=== PATIENT | female | born 1970 | race Caucasian/White ===

== ENCOUNTER → 2017-08-19 | Outpatient (CLI) | payer BC ==
--- NOTE | 2017-08-19 11:37 | MM ---
Reason for exam: clinical finding. Last mammogram was performed 2 years and 8 months ago. History: Benign US biopsy breast VAD LT of the left breast, January 03, 2014. U/S LT Cancelled Aspiration of both breasts, June 05, 2013. Retro-pectoral silicone gel implants in both breasts, 2010. Physical Findings: Nurse Summary: 0.5cm nodule in the right breast at 10 o'clock and a 0.5cm nodule in the left breast at 2 o'clock (nurse dw). MG Diag Mamm Implants TIGRE w CAD Bilateral CC and MLO view(s) were taken. Prior study comparison: December 24, 2014, bilateral MG diag mamm implants TIGRE w CAD. January 03, 2014, left breast MG diagnostic mammo LT wo CAD. The breast tissue is extremely dense which could obscure a lesion on mammography. Previous mammotome biopsy in the left breast. Subpectoral implants bilaterally. These results were verbally communicated with the patient and result sheet given to the patient on 08/19/17. ASSESSMENT: Incomplete: need additional imaging evaluation, BI-RAD 0 RECOMMENDATION: Ultrasound of both breasts. (palpables)
--- NOTE | 2017-08-19 11:41 | USB ---
Reason for exam: clinical finding. History: Benign US biopsy breast VAD LT of the left breast, January 03, 2014. U/S LT Cancelled Aspiration of both breasts, June 05, 2013. Retro-pectoral silicone gel implants in both breasts, 2010. US Breast BILAT Right breast ultrasound includes all four quadrants, the retroareolar region and axilla. Finding demonstrates a 1.2 x 0.4 x 0.6cm oval, mixed lesion at 10 o'clock questionable tissue or lobule and a 0.4 x 0.5cm oval, cystic lesion at 8 o'clock. Left breast ultrasound includes all four quadrants, the retroareolar region and axilla. Finding demonstrates a 0.7 x 0.3 x 0.6cm oval, cystic, hypoechoic lesion at 12 o'clock, a 0.5 x 0.6 x 0.4cm oval, irregular lesion at 12 o'clock was biopsied 01/03/14 and stable, a 0.7 x 0.3 x 0.6cm oval, cystic lesion at 1 o'clock BB and a 1.1 x 0.6 x 1.2cm oval, cystic cluster at 2 o'clock. Dense tissue noted at axilla BB. These results were verbally communicated with the patient and result sheet given to the patient on 08/19/17. ASSESSMENT: Probably benign, BI-RAD 3 RECOMMENDATION: Ultrasound of the right breast in 6 months.
== END ==
LOC: RADMAMWWP 07:25
PROVIDERS: ATTEND Family Medicine
DX: N60.12 Diffuse cystic mastopathy of left breast (principal); N63.32 Unspecified lump in axillary tail of the left breast
CPT/HCPCS: 77066

== ENCOUNTER → 2020-12-12 | Outpatient (CLI) | payer BC ==
--- NOTE | 2020-12-12 11:45 | MM ---
Reason for exam: clinical finding. Last mammogram was performed 3 years and 4 months ago. History: Benign US biopsy breast VAD LT of the left breast, January 03, 2014. U/S LT Cancelled Aspiration of both breasts, June 05, 2013. Retro-pectoral silicone gel implants in both breasts, 2010. Indicated problem(s): lump or thickening in the left breast. Physical Findings: Nurse Summary: 1cm nodule in the left breast at 2 o'clock (nurse anyn). MG Diag Mamm Implants TIGRE w CAD Bilateral CC, MLO, and ID view(s) were taken. XCCL view(s) were taken of the left breast. Prior study comparison: August 19, 2017, bilateral MG diag mamm implants TIGRE w CAD. December 24, 2014, bilateral MG diag mamm implants TIGRE w CAD. The breast tissue is extremely dense which could obscure a lesion on mammography. Previous mammotome biopsy in the left breast There is chronic nodularity in the left breast. Bilateral subpectoral implants redemonstrated. These results were verbally communicated with the patient and result sheet given to the patient on 12/12/20. ASSESSMENT: Incomplete: need additional imaging evaluation, BI-RAD 0 RECOMMENDATION: Ultrasound of both breasts. (palpables)
--- NOTE | 2020-12-12 11:49 | USB ---
Reason for exam: additional evaluation requested from abnormal screening. History: Benign US biopsy breast VAD LT of the left breast, January 03, 2014. U/S LT Cancelled Aspiration of both breasts, June 05, 2013. Retro-pectoral silicone gel implants in both breasts, 2010. US Breast BILAT Right complete breast ultrasound includes all four quadrants, the retroareolar region and axilla. Finding demonstrates a 11 x 4 x 6mm oval, avascular, hypoechoic lesion at 10 o'clock, stable from 2018, suspect debris filled cyst. Left complete breast ultrasound includes all four quadrants, the retroareolar region and axilla. Finding demonstrates a 5 x 3 x 8mm oval, cystic, mixed , stable lesion too small to characterize at 12 o'clock, a 10 x 4 x 8mm oval, lobular, cystic lesion at 2 o'clock, simple cyst and a 15 x 6 x 12mm oval, cystic lesion at 2 o'clock BB, simple cyst. These results were verbally communicated with the patient and result sheet given to the patient on 12/12/20. ASSESSMENT: Benign, BI-RAD 2 RECOMMENDATION: Follow-up diagnostic mammogram of both breasts in 1 year. Manage patient on a clinical basis.
== END | disposition home or self-care (01) ==
LOC: RADMAMWWP 09:00
PROVIDERS: ATTEND Family Medicine
DX: R92.2 Inconclusive mammogram (principal); N64.89 Other specified disorders of breast; N60.02 Solitary cyst of left breast
CPT/HCPCS: 77066

== ENCOUNTER → 2020-12-22 | Outpatient (CLI) | payer BC ==
--- NOTE | 2020-12-22 21:43 | ECHOF ---
Referral Reason:I34.0 Nonrheumatic mitral (valve) insufficiency MEASUREMENTS -------- HEIGHT: 165.1 cm WEIGHT: 53.5 kg BP: IVSd: 0.8 cm (0.6 - 1.1) LVIDd: 3.4 cm (3.9 - 5.3) LVPWd: 1.0 cm (0.6 - 1.1) EDV(Teich): 47 ml IVSs: 1.5 cm LVIDs: 1.6 cm LVPWs: 1.4 cm %IVS Thck: 78 % ESV(Teich): 8 ml EF(Teich): 83 % %FS: 51 % SV(Teich): 39 ml RVIDd: 2.8 cm (< 3.3) IVC: 22.19 mm LALs A4C: 3.2 cm LAAs A4C: 6.9 cm LAESV A-L A4C: 13 ml LAESV MOD A4C: 12 ml LALs A2C: 4.0 cm LAAs A2C: 11.9 cm LAESV A-L A2C: 30 ml LAESV MOD A2C: 29 ml LAESV(A-L): 22 ml LAESV Index (A-L): 14.06 ml/m Ao Diam: 3.3 cm (2.0 - 3.7) AV Cusp: 2.1 cm (1.5 - 2.6) EPSS: 0.4 cm MV E Mp: 0.84 m/s MV DecT: 249 ms MV Dec [place]: 3.4 m/s MV A Mp: 0.63 m/s MV E/A Ratio: 1.33 MV PHT: 72 ms LVOT Vmax: 0.90 m/s LVOT maxP.26 mmHg AV Vmax: 1.14 m/s AV maxP.16 mmHg TR Vmax: 1.88 m/s TR maxP.20 mmHg RAP: 5.00 mmHg RVSP: 19.20 mmHg MV EF SLOPE: 82.71 mm/s (70 - 150) MV EXCURSION: 19.62 mm (> 18.000) FINDINGS -------- Sinus rhythm. This was a technically adequate study. The left ventricular size is normal. Left ventricular wall thickness is normal. Overall left vent ricular systolic function is normal with, an EF between 55 - 60 %. The diastolic filling pattern is normal for the age of the patient 9.10. The right ventricle is normal in size. Normal LA size by volume 22+/-6 ml/m2. The right atrial size is normal. Interatrial and interventricular septum intact. There is no evidence of aortic regurgitation. There is no evidence of aortic stenosis. There is trace to mild mitral regurgitation. There is mild mitral valve prolapse. Mild tricuspid regurgitation present. There is no evidence of pulmonary hypertension. The right v entricular systolic pressure, as measured by Doppler, is 19.20mmHg. There is no pulmonic regurgitation present. The aortic root size is normal. The inferior vena cava is mildly dilated. There is no pericardial effusion. CONCLUSIONS -------- 1. The left ventricular size is normal. 2. Left ventricular wall thickness is normal. 3. Overall left ventricular systolic function is normal with, an EF between 55 - 60 %. 4. The diastolic filling pattern is normal for the age of the patient 9.10 5. There is trace to mild mitral regurgitation. 6. There is mild mitral valve prolapse. 7. Mild tricuspid regurgitation present. 8. The inferior vena cava is mildly dilated. H[employer] OFFICE MANAGER: Margot Fang RDCS
== END | disposition home or self-care (01) ==
LOC: RADECHMAIN 13:16
PROVIDERS: ATTEND Family Medicine
DX: I08.1 Rheumatic disorders of both mitral and tricuspid valves (principal)
CPT/HCPCS: 93306

== ENCOUNTER 2023-04-26 06:04 | Inpatient (IN) | payer BC ==
--- NOTE | 2023-04-26 06:41 | ED ---
General Adult HPI - General Chief complaint: Neuro Symptoms/Deficit Stated complaint: Syncope, Lost R Side Mobility Time Seen by Provider: 04/26/23 06:19 Source: patient, family, RN notes reviewed Mode of arrival: ambulatory Limitations: no limitations - History of Present Illness Initial comments: This is a 52 year old female who presents to the emergency department for neurological concerns. States that on 04/24 she was taking a shower at approximately 11:30pm when she believes that she "blacked out", however she did not fall and assumed it was brief. She then had temporary loss of right arm function, labored breathing, and difficulty speaking. On 04/25 she was taking a shower at approximately 10pm, when she developed a right sided facial spasms, slurred speech, and labored breathing again. Believes that this lasted about 2 minutes. While she had slurred speech, she could make sounds and was able to call for her . Later that evening around 10:30pm she was brushing her teeth, when she had uncontrolled right sided facial spasms, head movement, and slurred speech. Believes that this episode lasted a couple of minutes as well. Denies any medical problems or hx of heart attacks or strokes. Also denies any family hx of strokes. - Related Data Home Medications Medication Instructions Recorded Confirmed Montelukast Sodium [Singulair] 10 mg PO HS 02/08/15 04/26/23 Azelastine HCl [Astelin Nasal 2 spray EA NOSTRIL BID 04/26/23 04/26/23 [place]] Menoquil 1 tab PO BID 04/26/23 04/26/23 Multivitamin (Fruit & Veggie) 1 tab PO DAILY 04/26/23 04/26/23 Vitamin B Complex 1 cap PO DAILY 04/26/23 04/26/23 Allergies Allergy/AdvReac Type Severity Reaction Status Date / Time adhesive Allergy Rash/Hives Verified 04/26/23 09:10 Review of Systems ROS Statement: Those systems with pertinent positive or pertinent negative responses have been documented in the HPI. ROS Other: All systems not noted in ROS Statement are negative. Past Medical History Past Medical History: No Reported History History of Any Multi-Drug Resistant Organisms: None Reported Past Surgical History: Hysterectomy, Tonsillectomy Past Psychological History: No Psychological Hx Reported Smoking Status: Current every day smoker Past Alcohol Use History: None Reported Past Drug Use History: None Reported General Exam Limitations: no limitations General appearance: alert, in no apparent distress Head exam: Present: atraumatic, normocephalic, normal inspection Eye exam: Present: normal appearance, PERRL, EOMI. Absent: scleral icterus, conjunctival injection, periorbital swelling Respiratory exam: Present: normal lung sounds bilaterally. Absent: respiratory distress, wheezes, rales, rhonchi, stridor Cardiovascular Exam: Present: regular rate, normal rhythm, normal heart sounds. Absent: systolic murmur, diastolic murmur, rubs, gallop, clicks Neurological exam: Present: alert, oriented X3, CN II-XII intact Expanded Speech: Present: fluid speech Cerebellar function: Finger to Nose: Normal, Heel to [place]: Normal, Romberg: Normal Upper motor neuron: Fransico Neglect: Normal, Pronator Drift: Normal Motor strength exam: RUE: 5, LUE: 5, RLE: 5, LLE: 5 Psychiatric exam: Present: normal affect, normal mood Skin exam: Present: warm, dry, intact, normal color. Absent: rash Course Vital Signs 04/26/23 04/26/23 04/26/23 06:06 07:35 09:26 Temperature 98.1 F Pulse Rate 74 64 60 Respiratory 18 18 18 Rate Blood Pressure 134/85 121/81 130/82 O2 Sat by Pulse 97 98 99 Oximetry 04/26/23 11:31 Temperature Pulse Rate 82 Respiratory 16 Rate Blood Pressure 91/68 O2 Sat by Pulse 98 Oximetry Medical Decision Making - Medical Decision Making This is a 52 year old female who presents to the emergency department for neurological concerns. Was pt. sent in by a medical professional or institution? @ -No Did you speak to anyone other than the patient for history? @ -No Did you review nursing and triage notes? @ -Yes, and I agree, it is accurate with regards to the patient's symptoms. Were old charts reviewed? @ -No Differential Diagnosis? @ -Differential CVA: Ischemic stroke, hemorrhagic stroke, brain tumor, atypical migraine, Wernicke's encephalopathy, seizure, multiple sclerosis, meningitis, encephalitis, hypoglycemia, Guillain-Boone, electrolytes disturbance, myasthenia gravis.... This is not meant to be an all-inclusive list EKG interpreted by me (3pts min.)? @ -EKG interpreted by me demonstrating the following: Sinus rhythm, ventricular rate 65 BPM, TN interval 184 ms, QRS duration 86 ms, QTc 396 ms. X-rays interpreted by me (1pt min.)? @ -Chest x-ray obtained, my interpretation identifies no localized consolidations or infiltrates. CT interpreted by me (1pt min.)? @ -CT scan of the brain obtained. My interpretation identifies no evidence of an acute intracranial hemorrhage. CTA of the head and neck obtained. My interpretation identifies no evidence of an aneurysm. U/S interpreted by me (1pt. min.)? @ -Not obtained What testing was considered but not performed? (CT, X-rays, U/S, labs)? Why? @ -None What meds were considered but not given? Why? @ -None Did you discuss the management of the patient with other professionals? @ -Yes, Dr. Dos Santos, who accepts the patient for admission. Did you reconcile home meds? @ -Yes Was smoking cessation discussed for >3mins.? @ -I discussed smoking cessation for greater than 3 minutes. The risk of smoking were discussed with the patient including but not limited to risks of cancer, stroke, coronary artery disease and COPD. Also discussed with patient were multiple methods of quitting smoking. Lastly we discussed the financial c ost of smoking. Was critical care preformed (if so, how long)? @ -No Were there social determinants of health that impacted care today? How? (Ho melessness, low income, unemployed, alcoholism, drug addiction, transportation, low edu. Level, literacy, decrease access to med. care, assisted, rehab)? @ -No Was there de-escalation of care discussed even if they declined? (Discuss DNR or withdrawal of care, Hospice)? @ -No What co-morbidities impacted this encounter? (DM, HTN, Smoking, COPD, CAD, Cancer, CVA, Hep., AIDS, mental health diagnosis, sleep apnea, morbid obesity)? @ -Smoking Was patient admitted / discharged? @ -Admitted. Lab work obtained and found to be unremarkable. COVID, influenza, and RSV testing were negative. UA and UDS negative as well. Patient had an NIH of 0 on arrival. Chest x-ray obtained revealing no acute process. Computed tomography scan of the brain and CTA of the head and neck obtained also revealing no acute findings. Symptoms are concerning for a TIA based on the slurred speech and unilateral extremity weakness. Patient subsequently admitted to medicine with neurology consult. Undiagnosed new problem with uncertain prognosis? @ -None Drug Therapy requiring intensive monitoring for toxicity (Heparin, Nitro, Ins ulin, Cardizem)? @ -None Were any procedures done? @ -None Diagnosis/symptom? @ -TIA Acute, or Chronic, or Acute on Chronic? @ -Acute Uncomplicated (without systemic symptoms) or Complicated (systemic symptoms)? @ -Complicated Side effects of treatment? @ -None Exacerbation, Progression, or Severe Exacerbation] @ -Not applicable Poses a threat to life or bodily function? @ -Yes This case was discussed in detail with the attending ED physician, Dr. Gómez. Presentation, findings, and treatment plan discussed in detail as well. - Lab Data Result diagrams: 04/26/23 06:35 04/26/23 06:35 Lab Results 04/26/23 04/26/23 04/26/23 Range/Units 06:35 06:35 06:35 WBC 9.2 (3.8-10.6) k/uL RBC 4.30 (3.80-5.40) m/uL Hgb 13.0 (11.4-16.0) gm/dL Hct 40.0 (34.0-46.0) % MCV 93.1 (80.0-100.0) fL MCH 30.3 (25.0-35.0) pg MCHC 32.5 (31.0-37.0) g/dL RDW 13.2 (11.5-15.5) % Plt Count 189 (150-450) k/uL MPV 9.3 Neutrophils % 59 % Lymphocytes % 31 % Monocytes % 4 % Eosinophils % 3 % Basophils % 0 % Neutrophils # 5.4 (1.3-7.7) k/uL Lymphocytes # 2.9 (1.0-4.8) k/uL Monocytes # 0.4 (0-1.0) k/uL Eosinophils # 0.3 (0-0.7) k/uL Basophils # 0.0 (0-0.2) k/uL PT 10.4 (10.0-12.5) sec INR 0.9 (<1.2) APTT 24.2 (22.0-30.0) sec Sodium (137-145) mmol/L Potassium (3.5-5.1) mmol/L Chloride (98-107) mmol/L Carbon Dioxide (22-30) mmol/L Anion Gap mmol/L BUN (7-17) mg/dL Creatinine (0.52-1.04) mg/dL Est GFR (CKD-EPI)AfAm (>60 ml/min/1.73 sqM) Est GFR (CKD-EPI)NonAf (>60 ml/min/1.73 sqM) Glucose (74-99) mg/dL Calcium (8.4-10.2) mg/dL Magnesium (1.6-2.3) mg/dL Total Bilirubin (0.2-1.3) mg/dL AST (14-36) U/L ALT (4-34) U/L Alkaline Phosphatase (38-126) U/L Troponin I (0.000-0.034) ng/mL Total Protein (6.3-8.2) g/dL Albumin (3.5-5.0) g/dL Urine Color Urine Appearance (Clear) Urine pH (5.0-8.0) Ur Specific [place] (1.001-1.035) Urine Protein (Negative) Urine Glucose (UA) (Negative) Urine Ketones (Negative) Urine Blood (Negative) Urine Nitrite (Negative) Urine Bilirubin (Negative) Urine Urobilinogen (<2.0) mg/dL Ur Leukocyte Esterase (Negative) Urine Opiates Screen Not Detected (NotDetected) Ur Oxycodone Screen Not Detected (NotDetected) Urine Methadone Screen Not Detected (NotDetected) Ur Barbiturates Screen Not Detected (NotDetected) U Tricyclic Antidepress Not Detected (NotDetected) Ur Phencyclidine Scrn Not Detected (NotDetected) Ur Amphetamines Screen Not Detected (NotDetected) U Methamphetamines Scrn Not Detected (NotDetected) U Benzodiazepines Scrn Not Detected (NotDetected) Urine Cocaine Screen Not Detected (NotDetected) U Marijuana (THC) Screen Not Detected (NotDetected) Influenza Type A (PCR) (Not Detectd) Influenza Type B (PCR) (Not Detectd) RSV (PCR) (Not Detectd) SARS-CoV-2 (PCR) (Not Detectd) 04/26/23 04/26/23 04/26/23 Range/Units 06:35 06:35 06:35 WBC (3.8-10.6) k/uL RBC (3.80-5.40) m/uL Hgb (11.4-16.0) gm/dL Hct (34.0-46.0) % MCV (80.0-100.0) fL MCH (25.0-35.0) pg MCHC (31.0-37.0) g/dL RDW (11.5-15.5) % Plt Count (150-450) k/uL MPV Neutrophils % % Lymphocytes % % Monocytes % % Eosinophils % % Basophils % % Neutrophils # (1.3-7.7) k/uL Lymphocytes # (1.0-4.8) k/uL Monocytes # (0-1.0) k/uL Eosinophils # (0-0.7) k/uL Basophils # (0-0.2) k/uL PT (10.0-12.5) sec INR (<1.2) APTT (22.0-30.0) sec Sodium 141 (137-145) mmol/L Potassium 4.7 (3.5-5.1) mmol/L Chloride 108 H (98-107) mmol/L Carbon Dioxide 19 L (22-30) mmol/L Anion Gap 14 mmol/L BUN 16 (7-17) mg/dL Creatinine 0.59 (0.52-1.04) mg/dL Est GFR (CKD-EPI)AfAm >90 (>60 ml/min/1.73 sqM) Est GFR (CKD-EPI)NonAf >90 (>60 ml/min/1.73 sqM) Glucose 110 H (74-99) mg/dL Calcium 9.5 (8.4-10.2) mg/dL Magnesium 2.2 (1.6-2.3) mg/dL Total Bilirubin 0.9 (0.2-1.3) mg/dL AST 36 (14-36) U/L ALT 22 (4-34) U/L Alkaline Phosphatase 60 (38-126) U/L Troponin I <0.012 (0.000-0.034) ng/mL Total Protein 7.7 (6.3-8.2) g/dL Albumin 4.6 (3.5-5.0) g/dL Urine Color Urine Appearance (Clear) Urine pH (5.0-8.0) Ur Specific [place] (1.001-1.035) Urine Protein (Negative) Urine Glucose (UA) (Negative) Urine Ketones (Negative) Urine Blood (Negative) Urine Nitrite (Negative) Urine Bilirubin (Negative) Urine Urobilinogen (<2.0) mg/dL Ur Leukocyte Esterase (Negative) Urine Opiates Screen (NotDetected) Ur Oxycodone Screen (NotDetected) Urine Methadone Screen (NotDetected) Ur Barbiturates Screen (NotDetected) U Tricyclic Antidepress (NotDetected) Ur Phencyclidine Scrn (NotDetected) Ur Amphetamines Screen (NotDetected) U Methamphetamines Scrn (NotDetected) U Benzodiazepines Scrn (NotDetected) Urine Cocaine Screen (NotDetected) U Marijuana (THC) Screen (NotDetected) Influenza Type A (PCR) Not Detected (Not Detectd) Influenza Type B (PCR) Not Detected (Not Detectd) RSV (PCR) Not Detected (Not Detectd) SARS-CoV-2 (PCR) Not Detected (Not Detectd) 04/26/23 Range/Units 07:35 WBC (3.8-10.6) k/uL RBC (3.80-5.40) m/uL Hgb (11.4-16.0) gm/dL Hct (34.0-46.0) % MCV (80.0-100.0) fL MCH (25.0-35.0) pg MCHC (31.0-37.0) g/dL RDW (11.5-15.5) % Plt Count (150-450) k/uL MPV Neutrophils % % Lymphocytes % % Monocytes % % Eosinophils % % Basophils % % Neutrophils # (1.3-7.7) k/uL Lymphocytes # (1.0-4.8) k/uL Monocytes # (0-1.0) k/uL Eosinophils # (0-0.7) k/uL Basophils # (0-0.2) k/uL PT (10.0-12.5) sec INR (<1.2) APTT (22.0-30.0) sec Sodium (137-145) mmol/L Potassium (3.5-5.1) mmol/L Chloride (98-107) mmol/L Carbon Dioxide (22-30) mmol/L Anion Gap mmol/L BUN (7-17) mg/dL Creatinine (0.52-1.04) mg/dL Est GFR (CKD-EPI)AfAm (>60 ml/min/1.73 sqM) Est GFR (CKD-EPI)NonAf (>60 ml/min/1.73 sqM) Glucose (74-99) mg/dL Calcium (8.4-10.2) mg/dL Magnesium (1.6-2.3) mg/dL Total Bilirubin (0.2-1.3) mg/dL AST (14-36) U/L ALT (4-34) U/L Alkaline Phosphatase (38-126) U/L Troponin I (0.000-0.034) ng/mL Total Protein (6.3-8.2) g/dL Albumin (3.5-5.0) g/dL Urine Color Colorless Urine Appearance Clear (Clear) Urine pH 6.0 (5.0-8.0) Ur Specific [place] 1.025 (1.001-1.035) Urine Protein Negative (Negative) Urine Glucose (UA) Negative (Negative) Urine Ketones Negative (Negative) Urine Blood Negative (Negative) Urine Nitrite Negative (Negative) Urine Bilirubin Negative (Negative) Urine Urobilinogen <2.0 (<2.0) mg/dL Ur Leukocyte Esterase Negative (Negative) Urine Opiates Screen (NotDetected) Ur Oxycodone Screen (NotDetected) Urine Methadone Screen (NotDetected) Ur Barbiturates Screen (NotDetected) U Tricyclic Antidepress (NotDetected) Ur Phencyclidine Scrn (NotDetected) Ur Amphetamines Screen (NotDetected) U Methamphetamines Scrn (NotDetected) U Benzodiazepines Scrn (NotDetected) Urine Cocaine Screen (NotDetected) U Marijuana (THC) Screen (NotDetected) Influenza Type A (PCR) (Not Detectd) Influenza Type B (PCR) (Not Detectd) RSV (PCR) (Not Detectd) SARS-CoV-2 (PCR) (Not Detectd) - Radiology Data Radiology results: report reviewed, image reviewed Disposition Clinical Impression: Nicotine dependence, TIA (transient ischemic attack) Disposition: ADMITTED IP TO THIS HOSP
[2023-04-26 06:50] LABS: Basophils % (A) 0 %; Eosinophils # (A) 0.3 k/uL (0-0.7); Eosinophils % (A) 3 %; Lymphocytes # (A) 2.9 k/uL (1.0-4.8); Lymphocytes % (A) 31 %; MCH 30.3 pg (25.0-35.0); MCHC 32.5 g/dL (31.0-37.0); MCV 93.1 fL (80.0-100.0); Mean Platelet Volume 9.3; Monocytes # (A) 0.4 k/uL (0-1.0); Monocytes % (A) 4 %; Neutrophils # (A) 5.4 k/uL (1.3-7.7); Neutrophils % (A) 59 %; Platelet Count 189 k/uL (150-450); RDW 13.2 % (11.5-15.5); WBC 9.2 k/uL (3.8-10.6)
[2023-04-26 06:59] LABS: ALT 22 U/L (4-34); African American GFR (CKD) >90 (>60 ml/min/1.73 sqM); Albumin 4.6 g/dL (3.5-5.0); Anion Gap 14 mmol/L; Blood Urea Nitrogen 16 mg/dL (7-17); Calcium 9.5 mg/dL (8.4-10.2); Carbon Dioxide 19 mmol/L (22-30); Chloride 108 mmol/L (98-107); Glucose 110 mg/dL (74-99); Non-African American GFR(CKD) >90 (>60 ml/min/1.73 sqM); Sodium 141 mmol/L (137-145); Total Bilirubin 0.9 mg/dL (0.2-1.3); Total Protein 7.7 g/dL (6.3-8.2)
[2023-04-26 07:01] LABS: AST 36 U/L (14-36); Alkaline Phosphatase 60 U/L (38-126); INR 0.9 (<1.2); Magnesium 2.2 mg/dL (1.6-2.3); Partial Thromboplastin Time 24.2 sec (22.0-30.0); Potassium 4.7 mmol/L (3.5-5.1); Prothrombin Time 10.4 sec (10.0-12.5)
--- NOTE | 2023-04-26 07:29 | XR ---
EXAMINATION TYPE: XR chest 2V DATE OF EXAM: 04/26/2023 COMPARISON: 02/08/2015 INDICATION: Altered mental status TECHNIQUE: Frontal and lateral views of the chest are obtained. FINDINGS: The heart size is normal. The pulmonary vasculature is normal. The lungs are clear. IMPRESSION: 1. No acute pulmonary process.
--- NOTE | 2023-04-26 07:31 | CT ---
EXAMINATION TYPE: CT brain wo con DATE OF EXAM: 04/26/2023 COMPARISON: None INDICATION: Neuro Deficit, Lost right side mobility, syncope. DLP: 1033.3 mGycm, Automated exposure control for dose reduction was used. CONTRAST: None CT of the brain is performed utilizing 3 mm thick sections through the posterior fossa and 3 mm thick sections through the remaining calvarium. Study is performed within 24 hours of arrival to the hosp ital. No abnormal hyperdensity is present to suggest an acute intracranial hemorrhage. No mass lesion is evident. No acute infarcts are evident. Density through the brain appears normal. Ventricles and sulci are appropriate for the patient age. Paranasal sinuses and mastoid air cells within the [id number] are clear. IMPRESSION: 1. No acute intracranial process radiographically apparent. Follow-up MRI can be performed as clini mya indicated
[2023-04-26 07:45] LABS: Appearance,Urine Clear (Clear); Bilirubin,Urine Negative (Negative); Blood,Urine Negative (Negative); Color,Urine Colorless; Glucose,Urine (UA) Negative (Negative); Ketones,Urine Negative (Negative); Leukocyte Esterase,Urine Negative (Negative); Nitrite,Urine Negative (Negative); Protein,Urine Negative (Negative); Specific Gravity,Urine 1.025 (1.001-1.035); Urobilinogen,Urine <2.0 mg/dL (<2.0)
[2023-04-26 08:24] LABS: Amphetamine Screen,Urine Not Detected (NotDetected); Barbiturate Screen,Urine Not Detected (NotDetected); Benzodiazepines Screen,Urine Not Detected (NotDetected); Cocaine Screen,Urine Not Detected (NotDetected); Methadone Screen, Urine Not Detected (NotDetected); Opiate Screen,Urine Not Detected (NotDetected); Oxycodone Screen, Urine Not Detected (NotDetected); Phencyclidine Screen,Urine Not Detected (NotDetected); Tricyclic Antidepressant,Urine Not Detected (NotDetected); Urn Cannabinoid Scrn Not Detected (NotDetected)
--- NOTE | 2023-04-26 08:27 | CT ---
EXAMINATION TYPE: CT angio head neck DATE OF EXAM: 04/26/2023 7:56 AM COMPARISON: Same day CT head. CLINICAL INDICATION:Female, 52 years old with history of Neuro deficit, acute, stroke suspected; PHH, Syncope, Lost right side mobility TECHNIQUE: Axially acquired helical CT angiogram of the head and neck was obtained with contrast. Axi al images are supplemented with 3D reconstructions which were post-[facility] at [facility] NASCET criteria used. Contrast used: 65 ml mL of Isovue 370 without and with IV Contrast, Oral contrast used: None. CT DLP: 316.4 mGycm, Automated exposure control for dose reduction was used. FINDINGS: CTA Neck: A 3 vessel aortic arch is shown. There is no significant atherosclerotic plaque in the aortic arch or the origins of the innominate, left common carotid, and left subclavian arteries. The common caroti d, external carotid, cervical segments of the internal carotid, and the cervical segments of the vert ebral arteries are patent. There is no hemodynamically significant diameter stenosis, dissection, nor pseudoaneurysm present. There is no atherosclerotic plaque at the origins of the vertebral arteries. The left vertebral franca ry is slightly dominant. Other: Imaged portions of the lung apices are normal. CTA Head: The anterior and posterior cerebral circulations are patent. No hemodynamically significan t stenosis, aneurysm, dissection, or arteriovenous malformation is shown. The dural venous sinuses appear grossly patent without evidence of thrombosis. Other: No concerning abnormality in the neck. Imaged portions of the paranasal sinuses and mastoid air cells are clear. The orbits appear normal. There are no acute fractures of the calvaria or scalp swelling. IMPRESSION: CTA neck: No dissection, hemodynamically significant stenosis, or pseudoaneurysm detected in the carotid or shania tebral arteries in the neck. CTA head: No intracranial major vascular occlusion or significant stenosis, or sizable aneurysm detected in the limits of CTA.
[2023-04-26] MEDS ORDERED: NALOXONE 0.4 MG/ML 1 ML VIAL IV PRN (09:11)
[2023-04-26] MEDS ORDERED: ONDANSETRON 4 MG/2 ML VIAL IVP PRN (09:11)
[2023-04-26] MEDS ORDERED: LORazepam 2 MG/ML INJ IV PRN (16:55)
--- NOTE | 2023-04-26 16:56 | P.CNNES ---
History of Present Illness Consult date: 04/26/23 Requesting physician: Nelly Valenzuela Reason for Consult: possible tia, episode of slurred speech, right arm weakness and numbness. History of Present Illness: This is a 52-year-old woman who presented emergency department because of repeated episode of facial spasm, right ankle weakness with confusion. Patient is accompanied with her was at bedside. She stated on 04/24/2023 patient had episode of right arm weakness with each difficulty that lasted less than 5 minutes. Then yesterday she had 2 episodes and that happened at nighttime at 10 PM and 10:30 in which she felt the right face was pulling and then spasming was slurring of the speech, garbled speech right arm weakness. She felt the right head was jerking to the right at 10:30 PM. Both episodes lasted less than 5 minutes. After the episodes for 3 of all she felt somewhat confused. She denies any urinary or bowel consult tongue bite. She denies any history of stroke or seizures. She said drinks wine just one small glass daily. She does smoke tobacco or 8 cigarettes daily. Denies illicit drug use. She feels back to baseline. Denies any family history of seizures. Some of the workup during his hospital visit consisted of: Patient is afebrile CBC differential is unremarkable. Sodium, calcium, magnesium, liver function, BUN and creatinine are within normal limits. Serum glucose is 110. UDS is not detected. CT of the head is reported as no acute intracranial process radiographically apparent. Follow-up MRI can be performed as clinical indicated. I personally reviewed the CT and I agree with the report. CTA of the neck is reported as no dissection, hemodynamic significant stenosis or sooner aneurysm detected in the carotid or vertebral artery in the neck. CTA head is reported as no intracranial major vascular occlusion or significant stenosis or sizable aneurysm detected in the limits of CT head are reviewed. Review of Systems Review of system: The 12 point system was reviewed and apparent positive and negative per HPI. Past Medical History Past Medical History: No Reported History History of Any Multi-Drug Resistant Organisms: None Reported Past Surgical History: Hysterectomy, Tonsillectomy Past Psychological History: No Psychological Hx Reported Smoking Status: Current every day smoker Past Alcohol Use History: None Reported Past Drug Use History: None Reported Medications and Allergies Home Medications Medication Instructions Recorded Confirmed Type Montelukast Sodium [Singulair] 10 mg PO HS 02/08/15 04/26/23 History Azelastine HCl [Astelin Nasal 2 spray EA NOSTRIL BID 04/26/23 04/26/23 History [place]] Menoquil 1 tab PO BID 04/26/23 04/26/23 History Multivitamin (Fruit & Veggie) 1 tab PO DAILY 04/26/23 04/26/23 History Vitamin B Complex 1 cap PO DAILY 04/26/23 04/26/23 History Allergies Allergy/AdvReac Type Severity Reaction Status Date / Time adhesive Allergy Rash/Hives Verified 04/26/23 09:10 Physical Examination - Vital Signs Vital Signs: Vital Signs Temp Pulse Resp BP Pulse Ox 04/26/23 11:31 82 16 91/68 98 04/26/23 09:26 60 18 130/82 99 04/26/23 07:35 64 18 121/81 98 04/26/23 06:06 98.1 F 74 18 134/85 97 Intake and Output 04/26/23 04/26/23 04/26/23 06:59 14:59 22:59 Other: Weight 54.431 kg GENERAL: The patient is lying in bed and is not in acute distress. NEUROLOGICAL: Higher mental function: The patient is awake, alert, oriented to self, place and time. Patient is following commands. No aphasia and no neglect. Cranial nerves: The pupils are round, equal and reactive to light and accommodation. Visual troy are full to confrontation throughout. Extraocular movement is intact no nystagmus is noted. Facial sensation is normal to touch throughout. The facial strength is normal throughout. Hearing is normal bilaterally to hand rub. Tongue is midline and moved [id number] without any difficulty. No dysarthria is noted. Shoulder shrug is normal bilaterally. Motor: The strength is 5 over 5 throughout. Normal tone and bulk. Cerebellum: Normal finger to nose heel to wynn bilaterally. Sensation: Sensation is normal to touch throughout. Reflexes (right/left): 2+ throughout. Plantars are downgoing bilaterally. Results - Laboratory Findings CBC and BMP: 04/26/23 06:35 04/26/23 06:35 Abnormal Lab Findings: Abnormal Labs 04/26/23 06:35 Chloride 108 H Carbon Dioxide 19 L Glucose 110 H Assessment and Plan Assessment: This is a 52-year-old woman with 3 episodes of right facial spasm and head shaking to the right, speech difficulty with slurring the speech, with weakness over the right side and the episode lasted 5 minutes and after the episode she would have some confusion. She had one episode on April 24, 2023 and the next 2 episodes were yesterday at night. Recurrent episodes of right facial spasm with head shake into the right and the right-sided weakness speech difficulty and some confusion after the episodes lasting less than 5 minutes. I'm concerned about seizure Tobacco use Plan: I ordered MRI of the brain with and without I ordered a routine EEG Ordered TSH, ammonia and vitamin B12. Patient wants to hold off any antiepileptic drugs for now until after the workup is done. Place on seizure precaution seizure pads The echo was ordered by the primary team is pending Notified the patient that the per the [facility] if patient truly has a seizure then she still avoid driving for 6 month until seizure-free, avoid heights, avoid swimming unassisted or using heavy machinery. Recommend the patient to follow-up with a neurologist as an outpatient within 1- 2 weeks. I discussed with the patient and her was at bedside Thank you for the consultation Time with Patient: Greater than 30
[2023-04-26] MEDS: ACETAMINOPHEN TAB 325 MG TAB PO PRN (18:23)
[2023-04-26] MEDS ORDERED: [UNRECOGNIZED DRUG - OTHER] PO SCH (21:00)
[2023-04-26] MEDS: AZELASTINE 137MCG/SPRAY EA NOSTRIL SCH (21:37)
[2023-04-26] MEDS: MONTELUKAST 10 MG TAB PO SCH (21:37)
[2023-04-27] MEDS: ACETAMINOPHEN TAB 325 MG TAB PO PRN ×2 (06:30→21:07)
--- NOTE | 2023-04-27 07:19 | CONS ---
CONSULTATION REASON FOR CONSULT: Chest pain, possible TIA. HISTORY OF PRESENT ILLNESS: Leidy Flores is a 52-year-old lady, who has no significant past medical history of cardiac anyway. She has no diabetes, hypertension, or any chest discomfort. About 9 years ago, she had a stress test, walked for over 12 minutes without any evidence of ischemia. This was a stress echo. She came into the hospital because of 3 episodes, 1st was on April 24, she was in the shower when she felt that she had no control of her right arm, felt weak, and also had some tingling on the right side of the face. This passed and then she did not seek medical attention. Next day, she had another episode when she had some issues with her speech, and also had another episode yesterday as well and this time it seemed to be more of slight facial twitching. She also had some jerking of her right arm. She had also speech disturbances. All of these symptoms have resolved. She feels well. Somewhere along the way, she had some sharp pain in the chest that lasted maybe less than 30 seconds. She insists that she does not have chest pain on a regular basis. She has pain on and off randomly and the quality of pain does not suggest angina. PAST MEDICAL HISTORY: Unremarkable for any hypertension, diabetes, myocardial infarction, CVA. She has a negative stress echo in 2013. Workup here revealed a CAT scan, and CTA were unremarkable. MRI and EEG are pending. Echo was performed yesterday evening. PHYSICAL EXAMINATION: VITAL SIGNS: Blood pressure is 118/70, pulse rate 66 per minute. HEENT: Unremarkable. Fundus was not examined by me. NECK: Supple. No JVD. No carotid bruit. HEART: Reveals S1, S2 heard normally. No rub, murmur, or gallop. LUNGS: Clear. ABDOMEN: Soft, nontender. LOWER EXTREMITIES: Reveal normal pulses. No edema. CENTRAL NERVOUS SYSTEM: Normal. IMAGING STUDIES: EKG revealed sinus mechanism, no acute changes. LABORATORY DATA: Lab data revealed initial troponin is normal and thyroid functions are normal. IMPRESSION: 1. Episode of transient ischemic attack versus seizure. Neurology is already evaluating the patient. 2. Atypical chest pain that occurred maybe more than 3 days ago. Unremarkable EKG. Normal physical exam. RECOMMENDATIONS: The patient is being worked up for possible seizure disorder and under care of Neurology. I will look at the echocardiogram. Agree with MRI and also EEG. No further intervention from a cardiac standpoint. We can start her on a statin medication if this is considered as a possible TIA. The patient appears to be doing well. I will review the echo and we will continue to see the patient as needed. Thank you very much for the consult. BAMBI / ADRIEL: [id number] /
[2023-04-27] MEDS: FOLIC ACID-VIT B COMPLEX-VIT C 1 CAP PO SCH (08:35)
[2023-04-27] MEDS: MULTIVITAMINS, THERA 1 EACH TAB PO SCH (08:35)
[2023-04-27] MEDS: AZELASTINE 137MCG/SPRAY EA NOSTRIL SCH ×2 (08:36→21:00)
[2023-04-27] MEDS: HYDROcodone/APAP 5-325MG 1 EACH TAB PO PRN ×2 (10:40→16:20)
--- NOTE | 2023-04-27 10:56 | CA ---
Transthoracic Echo Report Name: Leidy Flores Age: 52 Gender: F : 1970 Exam Date: 04/26/2023 15:03 Exam Location: [facility] Ht (in): 65 Wt (lb): 120 Ordering Physician: Liborio Dos Santos MD Attending/Referring Phys: [id number], Levon Tank Calibrator Doreen Bower RDCS Procedure CPT: Indications: Rule out heart disease Cardiac Hx: Technical Quality: Good Contrast 1: Total Dose (mL): Contrast 2: Total Dose (mL): MEASUREMENTS (Male / Female) Normal Values 2D ECHO LV Diastolic Diameter PLAX 4.1 cm 4.2 - 5.9 / 3.9 - 5.3 cm LV Systolic Diameter PLAX 2.6 cm IVS Diastolic Thickness 0.9 cm 0.6 - 1.0 / 0.6 - 0.9 cm LVPW Diastolic Thickness 0.9 cm 0.6 - 1.0 / 0.6 - 0.9 cm LV Relative Wall Thickness 0.4 RV Internal Dim ED PLAX 3.0 cm LA Systolic Diameter LX 2.6 cm 3.0 - 4.0 / 2.7 - 3.8 cm LV Diastolic Volume MOD 4C 82.2 cm??? LV Systolic Volume MOD 4C 37.7 cm??? LV Ejection Fraction MOD 4C 54.2 % LV Cardiac Index MOD 4C 1722.2 cm???/min???m??? LV Diastolic Length 4C 7.5 cm LV Systolic Length 4C 6.0 cm LV Diastolic Volume MOD 2C 70.5 cm??? LV Systolic Volume MOD 2C 28.0 cm??? LV Ejection Fraction MOD 2C 60.2 % LV Cardiac Index MOD 2C 1643.2 cm???/min???m??? LV Diastolic Length 2C 8.0 cm LV Systolic Length 2C 6.0 cm LA Volume 47.4 cm??? 18 - 58 / 22 - 52 cm??? LA Volume Index 30.1 cm???/m??? 16 - 28 cm???/m??? M-MODE MV E Point Septal Separation 0.3 cm DOPPLER AV Peak Velocity 119.3 cm/s AV Peak Gradient 5.7 mmHg MV E' Velocity 8.9 cm/s TR Peak Velocity 191.1 cm/s TR Peak Gradient 14.6 mmHg Right Ventricular Systolic Press 19.6 mmHg FINDINGS Left Ventricle Left ventricular ejection fraction is estimated at 55-60 %. Left ventricular cavity size normal. Left ventricular wall thickness normal. Right Ventricle Normal right ventricular size. Right ventricular systolic pressure within normal limits. Right Atrium Normal right atrial size. Left Atrium Mildly increased left atrial volume. Mitral Valve Structurally normal mitral valve. No mitral stenosis, regurgitation or prolapse. Mitral valve thickened. Elongation of the anterior mitral valve leaflet. Aortic Valve Trileaflet aortic valve. No aortic stenosis. Trace aortic regurgitation. Tricuspid Valve Structurally normal tricuspid valve. Trace to mild tricuspid regurgitation. Pulmonic Valve Structurally normal pulmonic valve. No pulmonic regurgitation. Pericardium No pericardial effusion. Aorta Normal size aortic root and proximal ascending aorta. CONCLUSIONS Normal LV size and systolic function. No significant abnormality on the Doppler exam. No pericardial effusion Previewed by: Dr. Daniel Montalvo MD (Electronically Signed) Final Date: 27 April 2023 10:55
--- NOTE | 2023-04-27 12:55 | EEG ---
ELECTROENCEPHALOGRAM REPORT CLINICAL HISTORY: This is a 52-year-old woman with recurrent episode of right facial twitching with head shaking to the right and some confusion. The video EEG is obtained to evaluate for seizure epileptiform activity. RELEVANT MEDICATION: The patient is not on any antiepileptic drugs. EEG TYPE: Routine 21-channel EEG with video EEG using the 10/20 electrode placement system. DESCRIPTION: Wakefulness is obtained. During awake state, the posterior-dominant rhythm consists of [id number] voltage of 11 hertz activity that is well modulated, well sustained. There is no physiological stage 2 sleep architecture. There is no focal slowing. Interictal and ictal is none. ACTIVATION PROCEDURE: Photic stimulation did evoke a posterior driving response at 12 hertz activity. There is no abnormality during the photic stimulation. Hyperventilation is not performed. CLINICAL INTERPRETATION: This is a normal routine EEG. There is no focal slowing, epileptiform discharge, or seizure on the EEG. A normal routine EEG does not rule out underlying epilepsy. Clinical correlation is recommended. MMODL / IJN: [id number] /
--- NOTE | 2023-04-27 13:06 | MR ---
EXAMINATION TYPE: MR brain wo/w con DATE OF EXAM: 04/27/2023 COMPARISON: None HISTORY: Seizure, facial spasms. CONTRAST: Performed utilizing 5.5 mL intravenous Gadavist gadolinium contrast. TECHNIQUE: Multiplanar, multiecho imaging on a 3.0 Carey magnet is performed through the brain. Stud y is performed within 24 hours of arrival to the hospital. The craniovertebral junction is normal. The pituitary is normal. Diffusion-weighted imaging is performed. No abnormal hyperintensity is present to suggest an acute i ntracranial infarct or acute ischemic change. No acute intracranial signal change is evident. No chronic signal changes. Ventricles and sulci are appropriate for the patient age. IMPRESSION: 1. Unremarkable pre and postcontrast MRI brain
--- NOTE | 2023-04-27 13:13 | P.PN ---
Subjective Progress Note Date: 04/27/22 I am following-up with patient and denies any further facial twitching or confusion. Is back to baseline. Pending MRI Brain and just completed EEG today. Objective - Vital Signs Vital signs: Vital Signs Temp 97.7 F 04/27/23 07:00 Pulse 61 04/27/23 07:00 Resp 18 04/27/23 08:36 BP 115/54 04/27/23 07:00 Pulse Ox 97 04/27/23 07:00 FiO2 Intake & Output 04/26/23 04/27/23 04/27/23 18:59 06:59 18:59 Weight 54.431 kg Other: Voiding Method Toilet # Voids 0 - Exam GENERAL: The patient is lying in bed and is not in acute distress. NEUROLOGICAL: Higher mental function: The patient is awake, alert, oriented to self, place and time. Patient is following commands. No aphasia and no neglect. Cranial nerves: The pupils are round, equal and reactive to light and accommodation. Visual troy are full to confrontation throughout. Extraocular movement is intact no nystagmus is noted. Facial sensation is normal to touch throughout. The facial strength is normal throughout. Hearing is normal bilaterally to hand rub. Tongue is midline and moved [id number] without any difficulty. No dysarthria is noted. Shoulder shrug is normal bilaterally. Motor: The strength is 5 over 5 throughout. Normal tone and bulk. Cerebellum: Normal finger to nose heel to wynn bilaterally. Sensation: Sensation is normal to touch throughout. Reflexes (right/left): 2+ throughout. Plantars are downgoing bilaterally. Some of the workup during his hospital visit consisted of: Patient is afebrile CBC differential is unremarkable. Sodium, calcium, magnesium, liver function, BUN and creatinine are within normal limits. Serum glucose is 110. Ammonia 21 Vitamin B12: 545 TSH: 2.[address] of the head is reported as no acute intracranial process radiographically apparent. Follow-up MRI can be performed as clinical indicated. I personally reviewed the CT and I agree with the report. CTA of the neck is reported as no dissection, hemodynamic significant stenosis or sooner aneurysm detected in the carotid or vertebral artery in the neck. CTA head is reported as no intracranial major vascular occlusion or significant stenosis or sizable aneurysm detected in the limits of CT head are reviewed. 2D echo: It is reported as normal left ventricular size and systolic function. No significant abnormality a Doppler exam. No pericardial effusion. - Labs CBC & Chem 7: 04/26/23 06:35 04/26/23 06:35 Assessment and Plan Assessment: This is a 52-year-old woman with 3 episodes of right facial spasm and head shaking to the right, speech difficulty with slurring the speech, with weakness over the right side and the episode lasted 5 minutes and after the episode she would have some confusion. She had one episode on April 24, 2023 and the next 2 episodes were yesterday at night. Recurrent episodes of right facial spasm with head shake into the right and the right-sided weakness speech difficulty and some confusion after the episodes lasting less than 5 minutes. I'm concerned about seizure---No further episode since presented to ED yesterday. Tobacco use Plan: Pending MRI of the brain with and without Routine EEG and pending to be read. Patient wants to hold off any antiepileptic drugs for now until after the workup is done. Place on seizure precaution seizure pads Notified the patient that the per the [facility] if patient truly has a seizure then she still avoid driving for 6 month until seizure-free, avoid heights, avoid swimming unassisted or using heavy machinery. Recommend the patient to follow-up with a neurologist as an outpatient within 1- 2 weeks. I discussed with the patient and her was at bedside. UPDATE: In the later afternoon, preliminary EEG is normal. MRI Brain w/ and w/o is reported as unremarkable pre and postcontrast. But I felt there is lesion on T2 (FLAIR) at the left frontal/premotor cortex region and no acute/subacute cva or any postcontrast enhancement. I spoke with reading radiologist (Dr. Rdz) and agreed there is a lesion on left frontal at T2. He felt there is total of 3 lesion on FLAIR in which the other was medial left parietal. He felt the differential is vascular vs mets vs demylinating disease. I spoke with another reading radiologist (Dr. Comer) and feels there is only on lesion on T2 and that is left frontal while left medial parietal he feels could be meningioma. He feels overall the differential are seizures > less likely D emylintating disease and vascular. I personally feels more seizure and Demylinating disease are differential. Recommend repeat MRI Brain within 3-4 weeks as outpatient and improves then unlikely Demyinating disease. I updated the patient and her and nurse accompanied me. The patient declined to be on seizure medications at this time. I ordered MRI C-spine, Thoracic spine, to assess if any further lesions suggestive of demyinating disease as well CSF study with VIRI Consulted pain specialist for Lumbar Puncture. I ordered OSEI, ANCA, ESR, HTLV1, RPR, SSA/SSB, Lyme, HIV, RF to rule out any mimickers. I had a lengthy discussion with patient and her and spend more than 30 minutes. Time with Patient: Greater than 30
--- NOTE | 2023-04-27 16:04 | P.HPIM ---
History of Present Illness This is a pleasant 52 years old female with no significant past medical history who follows up with Dr. Pizano Presents because of presyncope and the neurological symptoms. On 04/24 she was taking a shower when she felt she was consciousness but she is not passed out associated with unilateral arm weakness, could not speak for 5 minutes and then she came back to normal. Yesterday she was taking also a shower when similar things have been she notices her right face was twitching could not speak. But she could call for her hus band for help. Also the face deviation to the right side, also last for about 5 minutes Both episodes associated with shortness of breath per patient. Also during the second episode she has some jerking movement of the head. But she denies urinary bowel incontinence, no loss of consciousness, no tongue biting. She is had some headache and she still have mild headache mainly on the right side Currently she denies chest pain or dyspnea, no change in urine or bowel habits. No fever. She had recently had chest pain and she has a mitral valve prolapse, her PCP Dr. Pizano was referred her to stress test and echocardiogram which C supposed to do it tomorrow but this now canceled because of her hospitalization. She hasn't seen a signal manager before. She smokes about 8 cigarettes per day, patient was counseled to quit she agrees but she declines nicotine patch. No alcohol or illicit drugs. She getting scheduled injection for her ALLERGIC disease, for 1.5 YRS NOW with no issues. Vitals stable blood pressure borderline Labs including CBC, INR, BMP, liver enzymes, urinalysis, urine drug screen, mild varus are negative Review of Systems Review of systems CONSTITUTIONAL: No fever, no malaise, no fatigue. HEENT: No recent visual problems or hearing problems. Denied any sore throat. CARDIOVASCULAR: No orthopnea, PND, no palpitations, no syncope. PULMONARY: No shortness of breath, no cough, no hemoptysis. GASTROINTESTINAL: No diarrhea, no nausea, no vomiting, no abdominal pain. Normoactive bowel sounds. NEUROLOGICAL: No headaches, no weakness, no numbness. HEMATOLOGICAL: Denies any bleeding or petechiae. GENITOURINARY: Denies any burning micturition, frequency, or urgency. MUSCULOSKELETAL/RHEUMATOLOGICAL: Denies any joint pain, swelling, or any muscle pain. ENDOCRINE: Denies any polyuria or polydipsia. Past Medical History Past Medical History: No Reported History History of Any Multi-Drug Resistant Organisms: None Reported Past Surgical History: Hysterectomy, Tonsillectomy Past Psychological History: No Psychological Hx Reported Smoking Status: Current every day smoker Past Alcohol Use History: None Reported Past Drug Use History: None Reported Medications and Allergies Home Medications Medication Instructions Recorded Confirmed Type Montelukast Sodium [Singulair] 10 mg PO HS 02/08/15 04/26/23 History Azelastine HCl [Astelin Nasal 2 spray EA NOSTRIL BID 04/26/23 04/26/23 History [place]] Menoquil 1 tab PO BID 04/26/23 04/26/23 History Multivitamin (Fruit & Veggie) 1 tab PO DAILY 04/26/23 04/26/23 History Vitamin B Complex 1 cap PO DAILY 04/26/23 04/26/23 History Allergies Allergy/AdvReac Type Severity Reaction Status Date / Time adhesive Allergy Rash/Hives Verified 04/26/23 09:10 Physical Exam Vitals: Vital Signs Temp Pulse Resp BP Pulse Ox 04/26/23 11:31 82 16 91/68 98 04/26/23 09:26 60 18 130/82 99 04/26/23 07:35 64 18 121/81 98 04/26/23 06:06 98.1 F 74 18 134/85 97 Intake and Output 04/25/23 04/26/23 04/26/23 22:59 06:59 14:59 Other: Weight 54.431 kg GENERAL: The patient is alert and oriented x3, not in any acute distress. Well developed, well nourished. HEENT: Pupils are round and equally reacting to light. EOMI. No scleral icterus. No conjunctival pallor. Normocephalic, atraumatic. No pharyngeal erythema. No thyromegaly. CARDIOVASCULAR: S1 and S2 present. No murmurs, rubs, or gallops. PULMONARY: Chest is clear to auscultation, no wheezing , no crackles. ABDOMEN: Soft, nontender, nondistended, normoactive bowel sounds. No palpable organomegaly. MUSCULOSKELETAL: No joint swelling or deformity. EXTREMITIES: No cyanosis, clubbing, or pedal edema. NEUROLOGICAL: Gross neurological examination did not reveal any focal deficits. SKIN: No rashes. no petechiae. Results CBC & Chem 7: 04/26/23 06:35 04/26/23 06:35 Labs: Abnormal Lab Results - Last 24 Hours (Table) 04/26/23 Range/Units 06:35 Chloride 108 H (98-107) mmol/L Carbon Dioxide 19 L (22-30) mmol/L Glucose 110 H (74-99) mg/dL Assessment and Plan Assessment: 2 episodes of presyncope associated with arm weakness, facial deviation and slurred speech, currently resolved possible TIA versus others Nicotine dependence Recent history of chest pain, rule out cardiac causes. Plan: continue with neurocheck Check echocardiogram tele Neurology consult Cardiology consult Labs and medication were reviewed.. Continue same treatment. Continue with symptomatic treatment. Resume home medication. Monitor labs and vitals. DVT and GI prophylaxis. Further recommendations as per clinical course of the patient DVT prophylaxis: Subcutaneous heparin GI Prophylaxis: Pepcid Prognosis is guarded
[2023-04-27] MEDS: NYSTATIN 100,000 UNIT/ML SUSP 500,000 UNIT/5 ML CUP PO SCH ×2 (18:10→21:00)
[2023-04-27] MEDS: FAMOTIDINE 20 MG/2 ML VIAL IV SCH (21:00)
[2023-04-27] MEDS ORDERED: HEPARIN SODIUM,PORCINE 5,000 UNIT/ML 1 ML VIAL SQ SCH (21:00)
[2023-04-27] MEDS: MONTELUKAST 10 MG TAB PO SCH (21:00)
[2023-04-28 02:47] LABS: C Reactive Protein <0.30 mg/dL (0.00-0.80); Rheumatoid Factor, Qnt <15 IU/mL (0-15)
[2023-04-28 06:18] LABS: HIV 2 AB Non-Reactive (Non-Reactive); HIV AB P24 Non-Reactive (Non-Reactive); HIV P24 AG Non-Reactive (Non-Reactive)
[2023-04-28 08:14] VITALS: RESP 16
[2023-04-28] MEDS ORDERED: LORazepam 2 MG/ML INJ IV STA (08:50)
--- NOTE | 2023-04-28 09:27 | P.PN ---
Subjective This is a pleasant 52 years old female with no significant past medical history who follows up with Dr. Pizano Presents because of presyncope and the neurological symptoms. On 04/24 she was taking a shower when she felt she was consciousness but she is not passed out associated with unilateral arm weakness, could not speak for 5 minutes and then she came back to normal. Yesterday she was taking also a shower when similar things have been she notices her right face was twitching could not speak. But she could call for her for help. Also the face deviation to the right side, also last for about 5 minutes Both episodes associated with shortness of breath per patient. Also during the second episode she has some jerking movement of the head. But she denies urinary bowel incontinence, no loss of consciousness, no tongue biting. She is had some headache and she still have mild headache mainly on the right side Currently she denies chest pain or dyspnea, no change in urine or bowel habits. No fever. She had recently had chest pain and she has a mitral valve prolapse, her PCP Dr. Pizano was referred her to stress test and echocardiogram which C supposed to do it tomorrow but this now canceled because of her hospitalization. She hasn't seen a inclusion specialist before. She smokes about 8 cigarettes per day, patient was counseled to quit she agrees but she declines nicotine patch. No alcohol or illicit drugs. She getting scheduled injection for her ALLERGIC disease, for 1.5 YRS NOW with no issues. Vitals stable blood pressure borderline Labs including CBC, INR, BMP, liver enzymes, urinalysis, urine drug screen, mild varus are negative 04/27/2023 Patient presents with right facial spasm and twitching with difficulty speaking episodes and right-sided weakness that lasted 5 times times. Also she supposed to undergo stress test and echocardiogram by her PCP as an outpatient which is canceled because of hospitalization MRI of the brain and EEG are pending Echocardiogram done and reviewed by inclusion specialist with no further recommendation currently. She is currently on folic acid and vitamins No antiplatelet therapy or stenting were started yet Pending further workup and recommendation, neurology service on the case Discussed with staff Objective - Vital Signs Vital signs: Vital Signs Temp 97.7 F 04/27/23 07:00 Pulse 61 04/27/23 07:00 Resp 18 04/27/23 08:36 BP 115/54 04/27/23 07:00 Pulse Ox 97 04/27/23 07:00 FiO2 Intake & Output 04/26/23 04/27/23 04/27/23 18:59 06:59 18:59 Weight 54.431 kg Other: Voiding Method Toilet # Voids 0 - Exam GENERAL: The patient is alert and oriented x3, not in any acute distress. Well developed, well nourished. HEENT: Pupils are round and equally reacting to light. EOMI. No scleral icterus. No conjunctival pallor. Normocephalic, atraumatic. No pharyngeal erythema. No thyromegaly. CARDIOVASCULAR: S1 and S2 present. No murmurs, rubs, or gallops. PULMONARY: Chest is clear to auscultation, no wheezing , no crackles. ABDOMEN: Soft, nontender, nondistended, normoactive bowel sounds. No palpable organomegaly. MUSCULOSKELETAL: No joint swelling or deformity. EXTREMITIES: No cyanosis, clubbing, or pedal edema. NEUROLOGICAL: Gross neurological examination did not reveal any focal deficits. SKIN: No rashes. no petechiae. - Labs CBC & Chem 7: 04/26/23 06:35 04/26/23 06:35 Assessment and Plan Assessment: 2 episodes of presyncope associated with arm weakness, facial deviation and slurred speech, currently resolved possible TIA versus others Nicotine dependence Recent history of chest pain, rule out cardiac causes. Plan: continue with neurocheck Check echocardiogram reviewed, cardiology team with no further recommendation currently tele Neurol follow-up MRI of the brain and EEG pending further neurologist recommendation Neurology consult on the case Labs and medication were reviewed.. Continue same treatment. Continue with symptomatic treatment. Resume home medication. Monitor labs and vitals. DVT and GI prophylaxis. Further recommendations as per clinical course of the patient DVT prophylaxis: Subcutaneous heparin GI Prophylaxis: Pepcid Prognosis is guarded
--- NOTE | 2023-04-28 09:36 | P.PCN ---
Date of Procedure: 04/28/23 Description of Procedure: Procedure: Lumbar Puncture . Preoperative Diagnoses: Seizures Postoperative Diagnosis: same Anesthesia: Floor RN gave 1 mg of Ativan prior to the procedure Condition: stable. Complications: none. Description of the procedure: The patient was seen on the floor in her room and 633. After consent was signed. All discussions were had regarding the risks benefits and alternatives to the procedure with the patient and her . After consent was signed, the patient was laid in the left lateral decubitus position. . At that point the level L2-3 was palpated. A 27-gauge needle was used to anesthetize the skin and subcu tissue using 1% lidocaine. After the needle was removed, a 22-gauge spinal needle was placed through the subcutaneous tissue into the spinal canal. The opening pressure was noted to be 1 cm of water, closing pressure was noted to be 1 cm of water. The patient did very well. The flow of CSF was very slow. After 15 minutes of trying to obtain CSF we are able to obtain only 3 mL of CSF and there were sent into vials to the lab. The CSF was clear We did discuss potential for a spinal headache and the treatments for that. The patient will be rest flat for 2 hours in her room..
[2023-04-28] MEDS: NYSTATIN 100,000 UNIT/ML SUSP 500,000 UNIT/5 ML CUP PO SCH ×2 (10:10→12:36)
[2023-04-28] MEDS: AZELASTINE 137MCG/SPRAY EA NOSTRIL SCH (10:10)
[2023-04-28] MEDS: MULTIVITAMINS, THERA 1 EACH TAB PO SCH (10:11)
[2023-04-28] MEDS: FOLIC ACID-VIT B COMPLEX-VIT C 1 CAP PO SCH (10:11)
--- NOTE | 2023-04-28 10:12 | P.PN ---
Subjective HISTORY OF PRESENT ILLNESS: Patient is currently undergoing lumbar puncture this morning with anesthesia. Patient underwent MRI yesterday revealing no acute/subacute CVA. There is a possibility of vascular versus metastasis versus demyelinating disease. Neurology recommending repeat MRI in 3-4 weeks and seizure medications. However patient is declining to be on seizure medications at this time. There are no complaints of chest pain or pressure. No shortness of breath. Vital signs are stable. Echocardiogram completed revealing ejection fraction 55-60%. PHYSICAL EXAM: VITAL SIGNS: Reviewed. GENERAL: Well-developed in no acute distress. NECK: Supple. No JVD or thyromegaly LUNGS: Respirations even and unlabored. Lungs essentially clear to auscultation bilaterally. HEART: Regular rate and rhythm. S1 and S2 heard. EXTREMITIES: Normal range of motion. No clubbing or cyanosis. Peripheral pulses intact. No lower extremity edema ASSESSMENT: Facial spasms with right-sided weakness and speech difficulty, possible seizure Abnormal MRI, neurology following, status post lumbar puncture Nicotine dependence PLAN: Patient is status post lumbar puncture this morning. Await results Neurology following Patient is currently stable from a cardiac standpoint with no further inpatient recommendations We will sign off. Please reconsult if needed. Nurse practitioner note has been reviewed by physician. Signing provider agrees with the documented findings, assessment, and plan of care. Objective - Vital Signs Vital signs: Vital Signs Temp 97.7 F 04/28/23 07:10 Pulse 66 04/28/23 07:10 Resp 16 04/28/23 07:10 BP 133/77 04/28/23 07:10 Pulse Ox 98 04/28/23 07:10 FiO2 Intake & Output 04/27/23 04/28/23 04/28/23 18:59 06:59 18:59 Intake Total 240 Balance 240 Intake: Oral 240 Other: Voiding Method Toilet Toilet # Voids 2 2 - Labs CBC & Chem 7: 04/26/23 06:35 04/26/23 06:35
[2023-04-28] MEDS: FAMOTIDINE 20 MG/2 ML VIAL IV SCH (10:15)
[2023-04-28] MEDS: ACETAMINOPHEN TAB 325 MG TAB PO PRN (12:39)
[2023-04-28 15:06] LABS: Glucose,CSF 56 mg/dL (40-70); Total Protein,CSF 60 mg/dL (12-60)
--- NOTE | 2023-04-28 15:16 | MR ---
EXAMINATION TYPE: MR cspine/tspine wo/w con DATE OF EXAM: 04/28/2023 COMPARISON: NONE HISTORY: Demyelinating disease. Recent abnormal brain MRI. TECHNIQUE: Multiplanar, multisequence imaging of cervical and thoracic spine are performed without an d with IV contrast, patient injected with 5.5 cc of gadolinium. FINDINGS: C-SPINE: Slightly suboptimal as there is motion artifact compromise. FINDINGS: Sagittal images of the cervical spine show the craniocervical junction to appear within nor mal limits. The cervical and upper thoracic spinal cord is grossly normal in course, caliber, and si gnal. Vertebral alignment is anatomic. The vertebral body heights are normal. Mild to moderate spur ring and disc space narrowing at C5-C6 and C6-C7 levels is seen. Some heterogeneous Modic type I endp late changes at these levels are noted. No suspicious postcontrast enhancement. Axial images show no large disc herniation. Some motion artifact is present. T-SPINE: Less motion artifact then present in the cervical spine. Spinal cord shows normal course, caliber, and signal as it courses the thoracic spine. Vertebral bod y heights and alignment are satisfactory. Disc space heights are maintained. Bone marrow signal inten sity appears within normal limits. No suspicious postcontrast enhancement is seen. Review of the axial images shows no significant spinal canal stenosis or neural foraminal narrowing a t any thoracic level. Visualized thorax and upper abdomen are grossly unremarkable IMPRESSION: Suboptimal study but no convincing evidence for demyelinating disease involvement in the cervical or thoracic spine. No suspicious enhancement. Some degenerative change at C5-C6 and C6-C7 l evels otherwise fairly unremarkable study.
[2023-04-28 15:45] VITALS: BP 101/69; PULSE 78; TEMP 97.6
--- NOTE | 2023-04-28 16:34 | P.PN ---
Subjective Progress Note Date: 04/28/23 I am following-up with patient and she feels about the same. Today she had lumbar puncture. No further facial twitching or confusion and no other new neurological issues. Objective - Vital Signs Vital signs: Vital Signs Temp 97.6 F 04/28/23 15:10 Pulse 78 04/28/23 15:10 Resp 16 04/28/23 15:10 BP 101/69 04/28/23 15:10 Pulse Ox 98 04/28/23 15:10 FiO2 Intake & Output 04/27/23 04/28/23 04/28/23 18:59 06:59 18:59 Intake Total 240 1240 Balance 240 1240 Intake: Oral 240 1240 Other: Voiding Method Toilet Toilet Toilet # Voids 2 2 - Exam GENERAL: The patient is lying in bed and is not in acute distress. NEUROLOGICAL: Higher mental function: The patient is awake, alert, oriented to self, place and time. Patient is following commands. No aphasia and no neglect. Cranial nerves: The pupils are round, equal and reactive to light and accommodation. Visual troy are full to confrontation throughout. Extraocular movement is intact no nystagmus is noted. Facial sensation is normal to touch throughout. The facial strength is normal throughout. Hearing is normal bilaterally to hand rub. Tongue is midline and moved [id number] without any difficulty. No dysarthria is noted. Shoulder shrug is normal bilaterally. Motor: The strength is 5 over 5 throughout. Normal tone and bulk. Cerebellum: Normal finger to nose heel to wynn bilaterally. Sensation: Sensation is normal to touch throughout. Reflexes (right/left): 2+ throughout. Plantars are downgoing bilaterally. Some of the workup during his hospital visit consisted of: Patient is afebrile CBC differential is unremarkable. Sodium, calcium, magnesium, liver function, BUN and creatinine are within normal limits. Serum glucose is 110. Ammonia 21 Vitamin B12: 545 TSH: 2.650 ESR 17 CRP 21 RF: <15 OSEI is negative SSA/SSB is negative Treponema Pallidium non reactive Lyme IgG and IgM iare negative HIV 1/2 ab are negative CSF study glucose is 56 and total protein 60 UDS is not detected. CT of the head is reported as no acute intracranial process radiographically apparent. Follow-up MRI can be performed as clinical indicated. I personally reviewed the CT and I agree with the report. CTA of the neck is reported as no dissection, hemodynamic significant stenosis or sooner aneurysm detected in the carotid or vertebral artery in the neck. CTA head is reported as no intracranial major vascular occlusion or significant stenosis or sizable aneurysm detected in the limits of CT head are reviewed. 2D echo: It is reported as normal left ventricular size and systolic function. No significant abnormality a Doppler exam. No pericardial effusion. EEG is normal. MRI Brain w/ and w/o is reported as unremarkable pre and postcontrast. But I felt there is lesion on T2 (FLAIR) at the left frontal/premotor cortex region and no acute/subacute cva or any postcontrast enhancement. I spoke with reading radiologist (Dr. Rdz) and agreed there is a lesion on left frontal at T2. He felt there is total of 3 lesion on FLAIR in which the other was medial left parietal. He felt the differential is vascular vs mets vs demylinating disease. I spoke with another reading radiologist (Dr. Comer) and feels there is only on lesion on T2 and that is left frontal while left medial parietal he feels could be meningioma. He feels overall the differential are seizures > less likely Demylintating disease and vascular. Yesterday there is an addendum by Dr. Rdz stating multiple magaña-white junction/subacute cortical white matter lesion in the left hemisphere. Finding could represent vascular etiology or other etiology such as metastatic disease could be considered R felt less likely given lack of enhancement. Correlate for any history of malignancy. The monitoring such as MS unlikely given the patient's age [age] years old at the onset of symptomatology. Other demyelinating such as ADEM could be considered if the patient recently had a viral illness. MRI Cervical and Thoracic spine w/ and w/o: Suboptimal study but no convincing evidence for the monitoring disease involvement in the cervical or thoracic spine. No suspicious enhancement. Some degenerative change at C5-C6 and C6-C7 levels otherwise fairly unremarkable study. - Labs CBC & Chem 7: 04/26/23 06:35 04/26/23 06:35 Assessment and Plan Assessment: This is a 52-year-old woman with 3 episodes of right facial spasm and head shaking to the right, speech difficulty with slurring the speech, with weakness over the right side and the episode lasted 5 minutes and after the episode she would have some confusion. She had one episode on April 24, 2023 and the next 2 episodes were yesterday at night. Recurrent episodes of right facial spasm with head shake into the right and the right-sided weakness speech difficulty and some confusion after the episodes lasting less than 5 minutes. Likely seizures especially with focal lesion on left frontal FLAIR. ---No further episodes. On MRI Brain has left frontal lesion on FLAIR but acute or subacute CVA or enhancement. One of differential is seizure vs vascular (from old cva) vs demylinating. One of reading radiologist felt there are multiple lesion on the FLAIR on left hemisphere and beside vascular vs Demylinating disease also stated rule out metastatic but felt unlikely. MRI C and T-spine are negative. Tobacco use Plan: I highly recommended the patient to start on antiepileptic drug especially with left frontal lesion on FLAIR and clinically her symptoms correlate for seizure (facial twitching on right with head shaking to right with some confusion). She refused to start on mediations at this time. But stated would like to be discharged with script in case. Spoke with primary team N.P. and discharge on Lamictal with 25mg tablet with tapering dose until 100mg bid (25mg first week then second week 25mg bid, then third week 50mg qam and 25mg qhs. Go up 25mg every week). Notified the patient that the per the [facility] because of highly suspicious for seizures, to avoid driving for 6 month until seizure-free, avoid heights, avoid swimming unassisted or using heavy machinery. Recommend repeat MRI Brain within 3-4 weeks as outpatient and if it improves then possible seizures. Will let her neurologist coordinate the work-up. Pending rest of work-up ANCA, HTLV1. Pending CSF study to come back. Her labs needs to be monitored by her Primary attending in mean time she follows-up with neurologist. Recommend the patient to follow-up with a neurologist as an outpatient within 1- 2 weeks. I had a lengthy discussion with the patient and her was at bedside. The nurse accompanied me conversation with family members. I also discussed with primary team N.P. I spend a total of 35 minutes on case. There is no further neurological work-up. Time with Patient: Greater than 30
[2023-04-28 16:38] LABS: Appearance,CSF Clear; CSF Tube Number 2; CSF Tube Volume 1.5; Nucleated Cells, CSF 2 u/L (0-5)
[2023-04-28 16:39] LABS: Red Blood Cell,CSF 24 u/L (0-10)
[2023-04-28 16:47] LABS: Red Blood Cell, CSF Crenated 4 %; Red Blood Cell, CSF Fresh 96 %
[2023-04-29 14:36] LABS: C-ANCA <1:20 Titer (<1:20)
--- NOTE | 2023-05-01 10:35 | P.DS ---
Providers Date of admission: 04/28/23 11:43 Expected date of discharge: 04/28/23 Attending physician: Liborio Dos Santos MD Consults: 04/26/23 09:11 Consult Physician Urgent Consulting Provider: Miguelito Christensen Consult Reason/Comments: Possible TIA, episodes of slurred speech, arm weakness/numbness Do you want consulting provider notified?: Yes Primary care physician: Suyapa Pizano Hospital Course: Final diagnosis 2 episodes of presyncope associated with arm weakness, facial deviation and slurred speech, currently resolved possible TIA versus seizures Nicotine dependence Recent history of chest pain, ruled out ACS Discharge disposition Patient is being discharged in a stable condition with guarded prognosis to home. Patient will follow-up with Dr. Pizano in the outpatient setting upon discharge. Patient is to continue with Lamictal with tapering dose and close outpatient follow-up with neurology as scheduled. Total time taken is greater than 35 minutes. Hospital course This is a 52-year-old female who was recently admitted with 2-3 separate occasions of weakness with right-sided deficit and confusion with concerns of possible TIAs versus seizures. Patient underwent EEG along with MRI with a frontal lesion noted on FLAIR with concerns of seizures and neurology following undergoing an thorough workup and recommending antiseizure medications although patient and family are refusing. Family requesting Lamictal with an escalation dosing for discharge and would like to follow-up with their primary care provider as well as a neurologist outpatient. Patient has been cleared by consultations for discharge. Please refer to other consultation notes for further HPI. Currently no reports of chest pain, shortness of breath, or palpitations. Patient is afebrile. No reports of nausea or vomiting and patient is tolerating diet. Patient will be discharged home. Physical exam: Gen: This is a 52-year-old female who is awake, alert and oriented 3, well-de veloped, well-nourished, thin built HEENT: Head is atraumatic, normocephalic. Pupils equal, round. Sclerae is anicteric. NECK: Supple. No JVD. No lymphadenopathy. No thyromegaly. LUNGS: Clear to auscultation. No wheezes or rhonchi. No intercostal retractions. HEART: Regular rate and rhythm. No murmur. ABDOMEN: Soft. Bowel sounds are present. No masses. No tenderness. EXTREMITIES: No pedal edema. No calf tenderness. NEUROLOGICAL: Patient is awake, alert and oriented x3. Cranial nerves 2 through 12 are grossly intact. Please refer to medication reconciliation sheet for a list of medications. The impression and plan of care has been dictated by Mariluz Dalton, Nurse Practitioner as directed. Dr. West MD I have performed a history and examination and MDM of this patient, discussed the same with the dictator, and agree with the dictator's assessment and plan as written ,documented as a scribe. Based on total visit time, I have performed more than 50% of the visit. Patient Condition at Discharge: Fair Plan - Discharge Summary New Discharge Prescriptions: New Nystatin 100,000 Unit/ml Susp [Mycostatin Oral Susp] 500,000 unit PO QID 7 Days #140 ml lamoTRIgine [LaMICtal] 25 mg PO DAILY 30 Days #81 tab Acetaminophen Tab [Tylenol] 650 mg PO Q6HR PRN tab PRN Reason: Mild Pain Or Fever > 100.5 Continue Montelukast Sodium [Singulair] 10 mg PO HS Multivitamin (Fruit & Veggie) 1 tab PO DAILY Menoquil 1 tab PO BID Vitamin B Complex 1 cap PO DAILY Azelastine HCl [Astelin Nasal [place]] 2 spray EA NOSTRIL BID Discharge Medication List Montelukast Sodium [Singulair] 10 mg PO HS 02/08/15 [History] Azelastine HCl [Astelin Nasal [place]] 2 spray EA NOSTRIL BID 04/26/23 [History] Menoquil 1 tab PO BID 04/26/23 [History] Multivitamin (Fruit & Veggie) 1 tab PO DAILY 04/26/23 [History] Vitamin B Complex 1 cap PO DAILY 04/26/23 [History] Acetaminophen Tab [Tylenol] 650 mg PO Q6HR PRN tab 04/28/23 [Rx] Nystatin 100,000 Unit/ml Susp [Mycostatin Oral Susp] 500,000 unit PO QID 7 Days #140 ml 04/28/23 [Rx] lamoTRIgine [LaMICtal] 25 mg PO DAILY 30 Days #81 tab 04/28/23 [Rx] Follow up Appointment(s)/Referral(s): Suyapa Pizano MD [Primary Care Provider] - 1-2 days Lisa Toro MD [REFERRING] - 1 Week Patient Instructions/Handouts: Generalized Tonic Clonic Seizures (GEN), Frontal Lobe Seizures (DC), Temporal Lobe Seizures (DC) Activity/Diet/Wound Care/Special Instructions: Activity Limited until follow-up Follow-up with primary care provider on discharge Discussed with primary care provider if neurology referral as needed and rec ommend outpatient follow-up with neurology in the next 1-2 weeks continue taking Lamictal taper as directed No driving for 6 mos per [place] Law NO opertating heavy equipment NO Heights...ladders etc. No swimming. FOLLOW UP DIRECTED, SOONER FOR WORSENING SYMPTOMS, PROBLEMS, OR CONCERNS.repeat REPEAT MRI IN 4 TO 6 WEEKS IS RECOMMENDED IN 4 TO 6 WEEKS. Discharge Disposition: HOME SELF-CARE
== END 2023-04-28 16:45 | disposition home or self-care (01) | DRG 72 ==
LOC: EC 06:04 → 6NMEDSUR 08:36 → OBSVTOIN 04-28 11:43
PROVIDERS: ADMIT Internal Medicine; ATTEND Internal Medicine
PROC: 009U3ZX Drainage of Spinal Canal, Percutaneous Approach, Diagnostic (ICD-10-PCS; principal; 2023-04-28)
DX: G93.89 Other specified disorders of brain (principal); G81.91 Hemiplegia, unspecified affecting right dominant side; R56.9 Unspecified convulsions; I34.1 Nonrheumatic mitral (valve) prolapse; R25.3 Fasciculation; F17.210 Nicotine dependence, cigarettes, uncomplicated; G51.31 Clonic hemifacial spasm, right; R47.81 Slurred speech; Z79.899 Other long term (current) drug therapy; Z91.048 Other nonmedicinal substance allergy status; Z11.52 Encounter for screening for COVID-19
CPT/HCPCS: 36415; 70450; 70496; 70498; 70553; 71046; 72156; 72157; 80053; 80306; 81003; 82040; 82042; 82140; 82607; 82784; 82945; 83735; 83916; 84157; 84443; 84484; 85025; 85610; 85652; 85730; 86038; 86140; 86235; 86255; 86431; 86618; 86780; 86790; 87390; 87636; 89050; 93005; 93306; 95816; 99285

== ENCOUNTER → 2023-07-13 | Outpatient (CLI) | payer BC ==
--- NOTE | 2023-07-16 17:44 | MR ---
EXAMINATION TYPE: MR venography head wo con DATE OF EXAM: 07/13/2023 6:08 PM CLINICAL INDICATION:Female, 52 years old with history of FOCAL SEIZURES R56.9; PHH, Focal seizure, po ssible thrombosis? COMPARISON: 04/27/2023 TECHNIQUE: MRV of the brain was performed utilizing two-dimensional ckio-op-wjwsis technique. FINDINGS: There is no evidence of venous occlusion or collateral circulation. There is no evidence of sinus th rombosis. IMPRESSION: No evidence of venous sinus thrombosis.
== END | disposition home or self-care (01) ==
LOC: RADMRIMAIN 17:30
PROVIDERS: ATTEND Psychiatry & Neurology Neurology
DX: R56.9 Unspecified convulsions (principal)
CPT/HCPCS: 70544

== ENCOUNTER → 2023-07-26 | Outpatient (CLI) | payer BC ==
[2023-07-26 15:59] LABS: Basophils # (A) 0.03 X 10*3/uL (0.00-0.10); Basophils % (A) 0.5 %; Eosinophils # (A) 0.12 X 10*3/uL (0.04-0.35); Eosinophils % (A) 1.9 %; HCT 40.7 % (37.2-46.3); HGB 13.4 g/dL (12.0-15.0); Lymphocytes % (A) 30.9 %; MCHC 32.9 g/dL (32.0-37.0); MCV 91.1 FL (80.0-97.0); Mean Platelet Volume 11.5 FL (9.5-12.2); Monocytes # (A) 0.48 X 10*3/uL (0.20-1.00); Monocytes % (A) 7.4 %; NRBC Per 100 WBC 0 X 10*3/uL (0.00-0.01); Neutrophils # (A) 3.83 X 10*3/uL (1.80-7.70); Neutrophils % (A) 59.1 %; Platelet Count 217 X 10*3/uL (140-440); RBC 4.47 X 10*6/uL (4.10-5.20); RDW 12.8 % (11.5-14.5); WBC 6.47 X 10*3/uL (4.50-10.00)
[2023-07-26 16:11] LABS: Immunoglobulin M 62.7 mg/dL (40.0-280.0)
[2023-07-26 16:17] LABS: Erythrocyte Sedimentation Rate 7 mm/Hr (0-20)
[2023-07-26 16:37] LABS: ALT 20 U/L (8-44); AST 23 U/L (13-35); Albumin 4.8 g/dL (3.8-4.9); Albumin/Globulin Ratio 1.78 Ratio (1.60-3.17); Alkaline Phosphatase 81 U/L (41-126); Blood Urea Nitrogen 12.4 mg/dL (9.0-27.0); C Reactive Protein <0.30 mg/dL (0.00-0.80); Calcium 10.1 mg/dL (8.7-10.3); Carbon Dioxide 27.2 mmol/L (21.6-31.8); Chloride 100 mmol/L (96-109); Globulin 2.7 g/dL (1.6-3.3); Glucose 98 mg/dL (70-110); Potassium 4.8 mmol/L (3.5-5.5); Sodium 137 mmol/L (135-145); T4, Free (Free Thyroxine) 1.08 ng/dL (0.80-1.80); Total Bilirubin 0.4 mg/dL (0.3-1.2); Total Protein 7.5 g/dL (6.2-8.2)
[2023-07-26 23:18] LABS: Immunoglobulin E <5.00 IU/mL (0.00-114.00)
== END | disposition home or self-care (01) ==
LOC: LABWHC1 10:06
PROVIDERS: ATTEND Family Medicine
DX: D80.2 Selective deficiency of immunoglobulin A [IgA] (principal); J30.89 Other allergic rhinitis; R55 Syncope and collapse
CPT/HCPCS: 36415; 80053; 82164; 82607; 82784; 82785; 83516; 84439; 84443; 85025; 85652; 86038; 86140; 86200

== ENCOUNTER 2023-09-07 10:59 | Day surgery (SDC) | payer BC ==
[2023-09-07] MEDS: LIDOCAINE 1% (10MG/ML) FOR IV START INTRADERMA PRN (11:25)
[2023-09-07] MEDS: LACTATED RINGERS 1,000 ML IV SCH (11:25)
[2023-09-07] MEDS ORDERED: LIDOCAINE 1% INJ 10MG/ML (20 ML MDV) ONE (11:31)
[2023-09-07] MEDS ORDERED: PROPOFOL 10 MG/ML 20 ML VIAL IV ONE (11:31)
--- NOTE | 2023-09-07 11:47 | P.PCN ---
Date of Procedure: 09/07/23 Procedure(s) Performed: BRIEF HISTORY: Patient is a 52-year-old, pleasant, white female scheduled for an upper endoscopy as a part of evaluation of abdominal pain and intermittent diarrhea for the last several years duration. She states that she was recently tested for celiac disease and had some serologies that were abnormal.. PROCEDURE PERFORMED: Esophagogastroduodenoscopy with biopsy. PREOPERATIVE DIAGNOSIS: Abdominal pain/diarrhea/positive serology for celiac disease. IV sedation per anesthesia. PROCEDURE: After informed consent was obtained, the patient was brought into the endoscopy unit. IV sedation was administered by Anesthesia under continuous monitoring. Initially the Olympus GIF-140 video endoscope was inserted into the mouth. Esophagus intubated without any difficulty. It was gradually advanced into the stomach and duodenum and carefully examined. The bulb and the second pa rt of the duodenum appeared normal. Antral biopsies were done from the duodenum to evaluate for celiac disease. The scope at this time was withdrawn to the stomach, adequately insufflated with air, and upon careful examination, mucosa of the antrum but gastritis and biopsies were done from this area. Mucosal, body, cardia and the fundus appeared normal. The scope was then withdrawn into the esophagus. The GE junction was located at 39 cm from the incisors. The esophagus appeared normal. There were no erosions or ulcerations seen and the patient tolerated the procedure well. IMPRESSION: 1. Normal-appearing duodenum s/p multiple biopsies to evaluate for celiac disease. 2. Mild antral gastritis. RECOMMENDATIONS: The findings of this examination were discussed with the patient. Family. She was advised to follow-up with the biopsy results. Follow-up with Dr. Pizano as scheduled..
[2023-09-07 11:52] VITALS: TEMP 97.9
[2023-09-07 12:44] VITALS: BP 117/78; RESP 14
[2023-09-07 12:45] VITALS: PULSE 68
== END 2023-09-07 12:27 | disposition home or self-care (01) ==
LOC: ORWHC2ENDO 10:59
PROVIDERS: ATTEND Internal Medicine Gastroenterology
DX: K29.50 Unspecified chronic gastritis without bleeding (principal); G40.909 Epilepsy, unspecified, not intractable, without status epilepticus; F17.210 Nicotine dependence, cigarettes, uncomplicated; Z79.899 Other long term (current) drug therapy; Z88.8 Allergy status to other drugs, medicaments and biological substances; Z90.710 Acquired absence of both cervix and uterus
CPT/HCPCS: 88305; 43239; J2001; J2704

== ENCOUNTER → 2023-09-26 | Outpatient (CLI) | payer BC ==
--- NOTE | 2023-09-26 11:35 | MR ---
EXAMINATION TYPE: MR brain wo/w con DATE OF EXAM: 09/26/2023 11:15 AM CLINICAL INDICATION:Female, 52 years old with history of R56.9 UNSPECIFIED CONVULSIONS; PHH, Seizures . COMPARISON: 04/27/2023 TECHNIQUE: Multi planar, multi sequence imaging was performed through the brain including: T1, T2, In version recovery, susceptibility weighted imaging and gradient echo imaging and Diffusion weighted im aging. The patient was then given intravenous contrast and multi planar, T1 fat-saturation images wer e obtained. IV Contrast: 5 cc Gadavist FINDINGS: The magaña-white junctions, ventricular system, basal cisterns appear unremarkable. Diffusion-weighted imaging shows no evidence of restricted diffusion to suggest acute/subacute infarct. Intracranial ar terial flow voids are maintained. Midline structures show no abnormality. The susceptibility weighted images do not reveal any evidence for micro-hemorrhage. After administration of gadolinium, no abnor mal enhancement is seen. The bone marrow signal is within normal limits. Paranasal sinuses and mastoid air cells: No significant paranasal sinus disease. Visualized orbits: Orbital contents are intact. IMPRESSION: No evidence of intracranial mass, acute/subacute infarct, or abnormal enhancement.
== END | disposition home or self-care (01) ==
LOC: RADMRIMAIN 10:32
PROVIDERS: ATTEND Psychiatry & Neurology Neurology
DX: R56.9 Unspecified convulsions (principal)
CPT/HCPCS: 70553; A9585

== ENCOUNTER → 2024-02-20 | Outpatient (CLI) | payer BC ==
--- NOTE | 2024-02-20 08:56 | MM ---
Reason for Exam: Clinical finding. Last mammogram was performed 3 year(s) and 2 month(s) ago. Indicated Problems: Difficult physical exam of both sides. Patient History: Menarche at age 14. First Full-Term at age 22. Hysterectomy at age 37. Previous chest radiation therapy. Patient used Hormonal Contraceptives for 1 year. 01/03/2014, Benign Core Biopsy on the left side. 06/05/2013, Bilateral U/S LT Cancelled Aspiration. 2010, Bilateral Implants. Risk Values: Leah 5 year model risk: 1.1%. NCI Lifetime model risk: 9.3%. Prior Study Comparison: 11/18/2011 Bilateral Diagnostic Mammogram, [facility]. 11/18/2011 Left Diagnostic Ultrasound, [facility]. 12/14/2011 Left Diagnostic Ultrasound, [facility]. 06/09/2012 Bilateral Diagnostic Ultrasound, [facility]. 05/17/2013 Bilateral Diagnostic Mammogram, [facility]. 05/17/2013 Left Diagnostic Ultrasound, [facility]. 12/11/2013 Left Diagnostic Mammogram, [facility]. 12/11/2013 Left Diagnostic Ultrasound, [facility]. 01/03/2014 Left Diagnostic Mammogram, [facility]. 12/24/2014 Left Diagnostic Ultrasound, [facility]. 12/24/2014 Bilateral Diagnostic Mammogram, [facility]. 08/19/2017 Bilateral Diagnostic Mammogram, [facility]. 08/19/2017 Bilateral Diagnostic Ultrasound, [facility]. 12/12/2020 Bilateral Diagnostic Mammogram, [facility]. 12/12/2020 Bilateral Diagnostic Ultrasound, [facility]. Tissue Density: The breasts are extremely dense, which lowers the sensitivity of mammography. Findings: Chronic 9 mm nodularity posterior upper outer quadrant left breast with overlying palpable marker. The palpable marker was placed in the same location back in 2020. Microclip left breast from prior biopsy. No suspicious microcalcification or other discrete abnormality is seen. Overall Assessment: Incomplete: need additional imaging evaluation, BI-RAD 0 Management: Diagnostic Breast Ultrasound of the right breast. For the physician palpated abnormality. [facility], , 02/20/2024 8:53 AM. Electronically signed and approved by: Stephen Stokes M.D. Radiologist
--- NOTE | 2024-02-20 09:29 | USB ---
Reason for Exam: Follow-up at short interval from prior study. Patient History: Menarche at age 14. First Full-Term at age 22. Hysterectomy at age 37. Previous chest radiation therapy. Patient used Hormonal Contraceptives for 1 year. 01/03/2014, Benign Core Biopsy on the left side. 06/05/2013, Bilateral U/S LT Cancelled Aspiration. 2010, Bilateral Implants. Risk Values: Leah 5 year model risk: 1.1%. NCI Lifetime model risk: 9.3%. Technique: Method: Targeted. Prior Study Comparison: 12/24/2014 Bilateral Diagnostic Mammogram, [facility]. 08/19/2017 Bilateral Diagnostic Mammogram, [facility]. 12/12/2020 Bilateral Diagnostic Mammogram, [facility]. Findings: The whole breast of the right breast, the axilla of the right breast and the retroareolar of the right breast were scanned. A complete US of all four quadrants of the breast, axilla, and retro-areolar region were reviewed. Underlying breast implant. Dense tissues are present throughout. At the 6:00 position, 7 cm from the nipple, there is a benign 4 mm cyst. At the 9:00 position, 7 cm from the nipple, there is an oval hypoechoic circumscribed lesion measuring 6 x 5 x 3 mm. This is in comparison to 11 x 6 x 4 mm on 12/12/2020. Decreasing size indicates a benign etiology. No other solid or cystic lesion or axillary lymphadenopathy. Overall Assessment: Benign, BI-RAD 2 Management: Screening Mammogram of both breasts in 1 year. A clinical breast exam by your physician is recommended on an annual basis and results should be correlated with mammographic findings. This exam should not preclude additional follow-up of suspicious palpable abnormalities. Results were given to the patient verbally at the time of exam. [facility], , 02/20/2024 9:25 AM. Electronically signed and approved by: Stephen Stokes M.D. Radiologist
== END | disposition home or self-care (01) ==
LOC: RADMAMWWP 08:05
PROVIDERS: ATTEND Family Medicine
DX: N63.0 Unspecified lump in unspecified breast
CPT/HCPCS: 77062; 77066

== ENCOUNTER → 2024-03-09 | Outpatient (CLI) | payer BC ==
--- NOTE | 2024-03-09 14:39 | CT ---
EXAMINATION TYPE: CT angio chest CT DLP: 457 mGycm, Automated exposure control for dose reduction was used. DATE OF EXAM: 03/09/2024 2:32 PM COMPARISON: Chest radiograph 04/26/23, CT scan pelvis 02/11/2015 CLINICAL INDICATION:Female, 53 years old with history of R79.1 ABNORMAL COAGULATION PROFILE; positive dimer TECHNIQUE/CONTRAST: CTA scan of the thorax is performed with IV Contrast, patient injected with 100cc mL of Isovue 370, p ulmonary embolism protocol. MIP images are created and reviewed. FINDINGS: Pulmonary Artery: There is no evidence for a filling defect within the pulmonary vasculature to sugge st acute pulmonary embolism. The pulmonary artery is of normal size. Lungs/Pleura: No evidence of focal consolidation, pleural effusion or pneumothorax. Minimal dependent bilateral lower lobe subsegmental atelectasis. No suspicious pulmonary nodule or mass. Airway: Large airways are patent. Heart: Heart is within normal limits for size.. Vasculature: No evidence of aortic aneurysm. Mediastinum: No evidence of adenopathy. Musculoskeletal: No acute osseous abnormalities Soft Tissues: Bilateral breast prosthesis. Lower neck: No significant findings. Upper Abdomen: Stable mild intra and extrahepatic biliary ductal dilatation dating back to 2014 IMPRESSION: No evidence of pulmonary embolism or acute thoracic process. [facility], , 03/09/2024 2:37 PM
== END | disposition home or self-care (01) ==
LOC: RADCTMAIN 13:44
PROVIDERS: ATTEND Internal Medicine Geriatric Medicine
DX: R79.1 Abnormal coagulation profile (principal); Z98.82 Breast implant status
CPT/HCPCS: 71275; Q9967

== ENCOUNTER → 2024-08-22 | Outpatient (CLI) | payer BC ==
--- NOTE | 2024-08-22 18:11 | MR ---
EXAMINATION TYPE: MR brain wo/w con DATE OF EXAM: 08/22/2024 4:00 PM COMPARISON: 09/25/2023. 04/27/2023. CLINICAL INDICATION: Female, 53 years old with history of R56.9 UNSPECIFIED CONVULSIONS G93.9 DISORDE R OF BR; PHH, Focal seizures, last one 2023, Episode of RT hand not working x1 month ago TECHNIQUE: Multi planar, multi sequence imaging was performed through the brain including: T1, T2, In version recovery, susceptibility weighted imaging and gradient echo imaging and Diffusion weighted im aging. The patient was then given intravenous contrast and multi planar, T1 fat-saturation images wer e obtained. IV Contrast: 5.5 mL Gadobutrol FINDINGS: Nonenhancing right pituitary 5 mm lesion is thought to be present series 901 image 81. . Th is was less conspicuous on prior imaging due to motion artifact on 09/25/2023 and may be stable in size dating back to 04/27/2023. Sanchez-white junctions, ventricular system, basal cisterns appear unremarkabl e. Diffusion-weighted imaging shows no evidence of restricted diffusion to suggest acute/subacute in farct. Intracranial arterial flow voids are maintained. Midline structures show no abnormality. Scatt ered foci of high T2 signal intensity are seen within the periventricular white matter. The susceptib ility weighted images do not reveal any evidence for micro-hemorrhage. After administration of gadoli nium, no abnormal enhancement is seen. The bone marrow signal is within normal limits. Paranasal sinuses and mastoid air cells: No significant paranasal sinus disease. Visualized orbits: Orbital contents are intact. IMPRESSION: 1. 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 Correlate with serum markers. 2. No evidence of intracranial mass, acute/subacute infarct, or abnormal enhancement. 3. Nonspecific white matter changes, likely related to small vessel ischemic disease. [facility], , 08/22/2024 6:09 PM
== END | disposition home or self-care (01) ==
LOC: RADMRIMAIN 15:05
PROVIDERS: ATTEND Family Medicine
DX: R56.9 Unspecified convulsions (principal); G93.9 Disorder of brain, unspecified; R90.82 White matter disease, unspecified
CPT/HCPCS: 70553; A9585